=== PATIENT | female | born 1975 | race Caucasian/White ===

== ENCOUNTER 2023-07-21 13:03 | Emergency (ER) | payer OTHER, MEDICAID ==
[~2023-07-21] VITALS: Ht 175.3 cm; Wt 125.0 kg
[2023-07-21 13:03] VITALS: BP 135/72; PULSE 101; RESP 16; TEMP 98.6; O2SAT 97
[~2023-07-21 13:03] MED LIST: IBUP-1984 PO; NORT25CA PO; OXCA300T4 PO; QUET200T PO; QUET300T2 PO
== END 2023-07-21 15:57 | disposition home or self-care (01) ==
LOC: ER 13:03
DX: M54.50 Low back pain, unspecified (principal); F17.200 Nicotine dependence, unspecified, uncomplicated; Z79.1 Long term (current) use of non-steroidal anti-inflammatories (NSAID); Z79.899 Other long term (current) drug therapy
CPT/HCPCS: 72100; 99283